=== PATIENT | male | born 1980 | race Two or more races ===

== ENCOUNTER 2019-05-08 23:37 | Emergency (ER) | payer SELFPAY ==
[~2019-05-08] VITALS: Ht 182.9 cm; Wt 83.9 kg
[2019-05-09] MEDS ORDERED: LORAZEPAM INJ 2 MG/ML VIAL IM ONE
[2019-05-09] MEDS ORDERED: LORAZEPAM INJ 2 MG/ML VIAL ONE (00:03)
[2019-05-09 00:34] VITALS: BP 144/117
== END 2019-05-09 02:21 | disposition home or self-care (01) ==
LOC: ER 23:46
DX: F41.9 Anxiety disorder, unspecified (principal); F12.10 Cannabis abuse, uncomplicated
CPT/HCPCS: 96372; 99284; J2060